=== PATIENT | female | born 1970 | race Hispanic/Latino ===

== ENCOUNTER 2025-06-01 10:18 | Emergency (ER) | payer OTHER, SELFPAY ==
[2025-06-01 11:16] LABS: Absolute Lymphocytes (CBC) 1.2 K/uL (0.7-4.9); Hematocrit 39.9 % (36.0-45.0); Hemoglobin 13.6 g/dL (12.0-15.0); MCH 30.2 pg (27.0-35.0); MCHC 34.1 g/dL (32.0-36.0); MCV 88.5 fL (80-100); MPV 8.7 fL (7.6-11.3); Nucleated RBC Absolute Count 0.0 (0-0); Nucleated Red Blood Cells % 0.0 % (0-0); RBC Red Blood Cell Count 4.51 M/uL (3.86-4.86); White Blood Count 7.70 thou/uL (4.3-10.9)
--- NOTE | 2025-06-01 11:29 | RAD REPORT ---
EXAMINATION: CT ABDOMEN AND PELVIS WITH CONTRAST CLINICAL INDICATION: (hysterectomy - no HCG needed);Abd pain TECHNIQUE: CT abdomen and pelvis was performed, after the administration of IV contrast[facility]. Axial, sagittal and coronal reconstructions were obtained. One or more of the following dose reduction techniques were used: Automated exposure control, adjustment of the mA and k V according to patient size, and iterative reconstruction. Unless otherwise specified, incidental findings do not require dedicated imaging follow-up. COMPARISON: 08/04/2023 FINDINGS: LOWER CHEST: The visualized lung bases are clear. LIVER: Normal in size and contour. No focal lesion. Cholecystectomy clips. SPLEEN: Normal size. No focal lesion. PANCREAS: No mass, ductal dilation, or maria elena-pancreatic fluid. ADRENALS: Normal; no mass. KIDNEYS: Normal size and contour. No hydronephrosis. GASTROINTESTINAL TRACT: No evidence of free air, significant intra-abdominal free fluid, bowel obstru ction or abscess. APPENDIX: Normal appendix. LYMPH NODES: No lymphadenopathy. MUSCULOSKELETAL: Mild multilevel spinal degenerative changes. ADDITIONAL FINDINGS: None. IMPRESSION: No acute or concerning abnormalities seen in the abdomen or pelvis.
[2025-06-01 11:43] LABS: ALT/SGPT 19.0 U/L (13-56); AST/SGOT 19.0 U/L (15-37); Anion Gap 8.6 mEq/L (5.0-15.0); BUN Blood Urea Nitrogen 12.0 mg/dL (7-18); Glucose Level 145.0 mg/dL (74-106); Potassium 3.6 mEq/L (3.5-5.1)
[2025-06-01 11:44] LABS: Albumin 3.3 g/dL (3.4-5.0); Albumin/Globulin Ratio 0.8 (1.1-1.8); Alkaline Phosphatase 87.0 U/L (45-117); Globulin 4.0 g/dL (2.3-3.5); Lipase 35.0 U/L (13-75)
[2025-06-01] MEDS ORDERED: ONDANSETRON 4 MG/2 ML VIAL ONE (11:55)
[2025-06-01] MEDS ORDERED: KETOROLAC 30 MG/ML INJ ONE (11:55)
[2025-06-01] MEDS ORDERED: NA CHLORIDE 0.9% 1,000 ML ONE (11:56)
[2025-06-01 12:09] LABS: Sqamous Epithelial <5 /HPF (None Seen); Urine Crystals Unidentified Few /HPF (None Seen); Urine Culture Reflex Order NOT NEEDED; Urine Microscopic Reflex YN ORDER UMIC; Urine WBC Clump Rare /HPF (None Seen); Urine Yeast (Budding) Trace /HPF (None Seen)
--- NOTE | 2025-06-01 12:28 | EDPHYS ---
Physician Documentation [facility] Name: Narcisa Hutton Age: 54 yrs Sex: Female : 1970 Arrival Date: 06/01/2025 Time: 10:18 Bed 17 Private MD: ED Physician Natali Mcclendon HPI: 06/01 11:29 This 54 yrs old Female presents to ER via Ambulatory with complaints of sp3 Abdominal Pain, Back Pain. 11:29 54-year-old female with history glaucoma presents with right lower quadrant abdominal sp3 pain extending into the right flank. Patient's symptoms were going on for last 4 to 5 days and are actually improving today. She did go to the [facility] urgent care who referred her to the ED for evaluation for possible appendicitis. She denies any other symptoms including fever, headache, neck pain, chest pain, shortness of breath, dysuria, urinary frequency, upper abdominal pain, vomiting, diarrhea, rash, bleeding, syncope, or any other signs or symptoms on ROS at this time.. Historical: - Allergies: 10:46 No Known Allergies; ll1 - PMHx: 10:43 Glaucoma; ll1 - PSHx: 10:43 Cholecystectomy; Ligation of fallopian tube; Total abdominal hysterectomy; ll1 - Immunization history:: Adult Immunizations up to date. - Infectious Disease History:: Denies. - Social history:: Smoking status: Patient denies any tobacco usage or history of. ROS: 11:30 Constitutional: Negative for fever, chills, and weight loss, Eyes: Negative for injury, sp3 pain, redness, and discharge, ENT: Negative for injury, pain, and discharge, Neck: Negative for injury, pain, and swelling, Cardiovascular: Negative for chest pain, palpitations, and edema, Respiratory: Negative for shortness of breath, cough, wheezing, and pleuritic chest pain, Back: Negative for injury and pain, MS/Extremity: Negative for injury and deformity, Skin: Negative for injury, rash, and discoloration, Neuro: Negative for headache, weakness, numbness, tingling, and seizure, Psych: Negative for depression, anxiety, suicide ideation, homicidal ideation, and hallucinations, Allergy/Immunology: Negative for hives, rash, and allergies, Endocrine: Negative for neck swelling, polydipsia, polyuria, polyphagia, and marked weight changes, Hematologic/Lymphatic: Negative for swollen nodes, abnormal bleeding, and unusual bruising, 11:30 All other systems are negative, Exam: 11:30 Constitutional: This is a well developed, well nourished patient who is awake, alert, sp3 and in no acute distress. Head/Face: Normocephalic, atraumatic. Eyes: Pupils equal round and reactive to light, extra-ocular motions intact. Lids and lashes normal. Conjunctiva and sclera are non-icteric and not injected. Cornea within normal limits. Periorbital areas with no swelling, redness, or edema. ENT: Nares patent. No nasal discharge, no septal abnormalities noted. External auditory canals are clear. Oropharynx with no redness, swelling, or masses, exudates, or evidence of obstruction, uvula midline. Mucous membranes moist. Neck: Trachea midline, no thyromegaly or masses palpated, and no cervical lymphadenopathy. Supple, full range of motion without nuchal rigidity, or vertebral point tenderness. No Meningismus. Chest/axilla: Normal chest wall appearance and motion. Nontender with no deformity. No lesions are appreciated. Cardiovascular: Regular rate and rhythm with a normal S1 and S2. No gallops, murmurs, or rubs. Normal PMI, no JVD. No pulse deficits. Respiratory: Lungs have equal breath sounds bilaterally, clear to auscultation and percussion. No rales, rhonchi or wheezes noted. No increased work of breathing, no retractions or nasal flaring. Back: No spinal tenderness. No costovertebral tenderness. Full range of motion. Skin: Warm, dry with normal turgor. Normal color with no rashes, no lesions, and no evidence of cellulitis. MS/ Extremity: Pulses equal, no cyanosis. Neurovascular intact. Full, normal range of motion. Neuro: Awake and alert, GCS 15, oriented to person, place, time, and situation. Cranial nerves II-XII grossly intact. Motor strength 5/5 in all extremities. Sensory grossly intact. Cerebellar exam normal. Normal gait. Psych: Awake, alert, with orientation to person, place and time. Behavior, mood, and affect are within normal limits. 11:30 Abdomen/GI: Mild right lower quadrant abdominal pain to palpation without peritoneal signs, rebound or guarding., Vital Signs: 10:46 BP 144 / 78; Pulse 78; Resp 17; Temp 97.3; Pulse Ox 99% ; Weight 88 kg; Height 5 ft. 4 ll1 in. ; Pain 6/10; 12:45 BP 129 / 68; Pulse 60; Resp 17; Pulse Ox 100% ; rg5 10:46 Body Mass Index 33.30 (88.00 kg, 162.56 cm) ll1 10:46 Pain Scale: Adult ll1 MDM: 10:52 Medical Screening Exam initiated sp3 11:32 Data reviewed: vital signs, nurses notes, lab test result(s), radiologic studies. ED sp3 course: 54-year-old female with right lower quadrant and right flank pain. Differential diagnosis includes appendicitis, functional abdominal pain, constipation, UTI/pyelonephritis spectrum, ureterolithiasis/kidney stone spectrum, musculoskeletal pain, among others. Workup include CT scan of the abdomen pelvis with IV contrast, general labs, UA and general supportive care. Pain and nausea medications as needed. Disposition pending workup and patient course.. 12:28 ED course: If workup negative and patient is feeling better. Will safely discharge sp3 patient home at this time.. 06/01 10:53 Order name: CBC with Diff; Complete Time: 11:33 sp3 06/01 10:53 Order name: CMP; Complete Time: 12:27 sp3 06/01 10:53 Order name: Lipase; Complete Time: 12:27 sp3 06/01 10:53 Order name: UA Rfx Galen Cult if indicated; Complete Time: 12:27 sp3 06/01 10:53 Order name: CT Abd/Pelvis - IV Contrast Only; Complete Time: 11:33 sp3 06/01 10:53 Order name: IV Saline Lock; Complete Time: 11:13 sp3 06/01 10:53 Order name: Labs collected and sent; Complete Time: 11:13 sp3 Administered Medications: 12:00 Drug: TORadol - Ketorolac IVP 15 mg IVP once Route: IVP; Site: right antecubital; iw 12:43 Follow up: Response: No adverse reaction; Pain is decreased rg5 12:00 Drug: Ondansetron IVP 4 mg IVP once; over 2 minutes Route: IVP; Site: right antecubital;iw 12:42 Follow up: Response: No adverse reaction rg5 12:42 Follow up: Response: No adverse reaction rg5 12:00 Drug: NS 0.9% IV 1000 ml IV at 1 bolus Per protocol; to be given as a bolus over 60 iw minutes Route: IV; Rate: 1 bolus; Site: right antecubital; 12:43 Follow up: IV Status: Completed infusion; IV Intake: 1000ml rg5 Disposition Summary: 06/01/25 12:28 Discharge Ordered Notes: Location: Home sp3 Condition: Stable sp3 Diagnosis - Abdominal pain sp3 Followup: sp3 - With: Private Physician - When: Upon discharge from the Emergency Department - Reason: Continuance of care Discharge Instructions: - Discharge Summary Sheet sp3 - Abdominal Pain, Adult sp3 Forms: - Medication Reconciliation Form sp3 - Antibiotic Education sp3 - Prescription Opioid Use sp3 - Patient Portal Instructions sp3 - Leadership Thank You Letter sp3 Prescriptions: - Tramadol 50 mg Oral Tablet - take 1 tablet ORAL route every 8 hours as needed; 12 tablet; Refills: 0, sp3 Product Selection Permitted Signatures: Dispatcher [employer] Margie Archibald RN Brandyn Varma RN RN ll1 Natali Mcclendon MD MD sp3 Kevon Correa, RN RN rg5
--- NOTE | 2025-06-01 12:28 | ER ---
Nurse's Notes [facility] Name: Narcisa Hutton Age: 54 yrs Sex: Female : 1970 Arrival Date: 06/01/2025 Time: 10:18 Bed 17 Private MD: Diagnosis: Abdominal pain Presentation: 06/01 10:46 Chief complaint: Patient states: Low back pain for 2 weeks. RLQ abdominal pain for 1 ll1 week. Went to [facility] Saturday. Coronavirus screen: Client denies travel out of the [place] in the last 14 days. At this time, the client does not indicate any symptoms associated with coronavirus-19. Ebola Screen: Patient denies travel to an Ebola-affected area in the 21 days before illness onset. Initial Sepsis Screen: Does the patient meet any 2 criteria? No. Patient's initial sepsis screen is negative. Does the patient have a suspected source of infection? No. Patient's initial sepsis screen is negative. Risk Assessment: Do you want to hurt yourself or someone else? Patient reports no desire to harm self or others. Onset of symptoms was May 19, 2025. 10:46 Method Of Arrival: Ambulatory ll1 10:46 Acuity: VIDHYA 3 ll1 Historical: - Allergies: 10:46 No Known Allergies; ll1 - PMHx: 10:43 Glaucoma; ll1 - PSHx: 10:43 Cholecystectomy; Ligation of fallopian tube; Total abdominal hysterectomy; ll1 - Immunization history:: Adult Immunizations up to date. - Infectious Disease History:: Denies. - Social history:: Smoking status: Patient denies any tobacco usage or history of. Screenin:[address] [facility] ED Fall Risk Assessment (Adult) History of falling in the last 3 months, iw including since admission No falls in past 3 months (0 pts) Confusion or Disorientation No (0 pts) Intoxicated or Sedated No (0 pts) Impaired Gait No (0 pts) Mobility Assist Device Used No (0 pt) Altered Elimination No (0 pt) Score/Fall Risk Level 0 - 2 = Low Risk Oriented to surroundings, Maintained a safe environment. Abuse screen: Denies threats or abuse. Denies injuries from another. Nutritional screening: No deficits noted. Tuberculosis screening: No symptoms or risk factors identified. Assessment: 12:00 General: Appears in no apparent distress. Behavior is calm, cooperative. Pain: iw Complains of pain in right lower quadrant and left lower quadrant. Neuro: Level of Consciousness is awake, alert, obeys commands, Oriented to person, place, time, situation, Moves all extremities. Full function. Cardiovascular: Patient's skin is warm and dry. Respiratory: Respiratory effort is even, unlabored, Respiratory pattern is regular, symmetrical. GI: Abd is soft X 4 quads. Derm: Skin is intact, is healthy with good turgor. Musculoskeletal: Range of motion: intact in all extremities. 12:30 Reassessment: No changes from previously documented assessment. Patient and/or family rg5 updated on plan of care and expected duration. Pain level reassessed. Patient is alert, oriented x 3, equal unlabored respirations, skin warm/dry/pink. Vital Signs: 10:46 BP 144 / 78; Pulse 78; Resp 17; Temp 97.3; Pulse Ox 99% ; Weight 88 kg; Height 5 ft. 4 ll1 in. ; Pain 6/10; 12:45 BP 129 / 68; Pulse 60; Resp 17; Pulse Ox 100% ; rg5 10:46 Body Mass Index 33.30 (88.00 kg, 162.56 cm) ll1 10:46 Pain Scale: Adult ll1 ED Course: 10:22 Patient arrived in ED. al6 10:23 Natali Mcclendon MD is Attending Physician. sp3 10:43 Arm band placed on. ll1 10:48 Triage completed. ll1 10:54 Margie Hill, RN is Primary Nurse. iw 11:12 Initial lab(s) drawn, by me, sent to lab. Inserted saline lock: 20 gauge in right iw antecubital area, using aseptic technique. Blood collected. Flushed with 10 mL NS. 11:25 CT Abd/Pelvis - IV Contrast Only In Process Unspecified. EDMS 12:16 Patient has correct armband on for positive identification. Provided Education on: . iw 12:54 No provider procedures requiring assistance completed. IV discontinued, bleeding rg5 controlled, No redness/swelling at site. Pressure dressing applied. Administered Medications: 12:00 Drug: TORadol - Ketorolac IVP 15 mg IVP once Route: IVP; Site: right antecubital; iw 12:43 Follow up: Response: No adverse reaction; Pain is decreased rg5 12:00 Drug: Ondansetron IVP 4 mg IVP once; over 2 minutes Route: IVP; Site: right antecubital;iw 12:42 Follow up: Response: No adverse reaction rg5 12:42 Follow up: Response: No adverse reaction rg5 12:00 Drug: NS 0.9% IV 1000 ml IV at 1 bolus Per protocol; to be given as a bolus over 60 iw minutes Route: IV; Rate: 1 bolus; Site: right antecubital; 12:43 Follow up: IV Status: Completed infusion; IV Intake: 1000ml rg5 Medication: 12:16 VIS not applicable for this client. iw Intake: 12:43 IV: 1000ml; Total: 1000ml. rg5 Outcome: 12:28 Discharge ordered by . sp3 12:55 Discharged to home ambulatory, rg5 12:55 Condition: stable 12:55 Discharge instructions given to patient, Instructed on discharge instructions, Demonstrated understanding of instructions, Prescriptions given X 1, 12:56 Patient left the ED. rg5 Signatures: Dispatcher [employer] EDMargie Nuñez RN RN iw Lewis, Lynsay RN RN ll1 Natali Mcclendon MD MD sp3 Kevon Correa RN RN rg5 Monse Cruz
[2025-06-01 13:12] VITALS: TEMP 97.3
[2025-06-01 13:14] VITALS: BP 129/68; O2SAT 100
== END 2025-06-01 12:56 | disposition home or self-care (01) ==
LOC: ER 10:18
DX: R10.31 Right lower quadrant pain (principal)
CPT/HCPCS: 36415; 74177; 80053; 81001; 83690; 85025; 96361; 96374; 96375; 99284; J2405; J7030; Q9967